=== PATIENT | male | born 1965 | race African-American/Black ===

== ENCOUNTER 2021-02-26 14:06 | Outpatient (RCR) | payer MEDICARE, MEDICAID, SELFPAY ==
--- NOTE | 2021-02-26 15:23 | REHOPWC ---
SEATING EVALUATION NOTIFICATION This is to notify provider that Laure Roca participated in a power mobility device evaluation today. Recommendations were made specific to patient's needs. Seating Assessment documentation has been completed for detailed information on required equipment. The mobility device provider for this case is Ilir. Please note that no further care plan will be developed on this account. Thank you for referring this patient to [facility]. Please review, sign, date and return this discharge summary SINCERE. I have been updated about the patient's current status and I agree with discharge from the above service at this time. Referring Physician Date
== END 2021-02-27 08:35 | disposition home or self-care (01) ==
LOC: ANHPT 14:06
PROVIDERS: PCP Family Medicine; Visit Provider Family Medicine
DX: M17.0 Bilateral primary osteoarthritis of knee (principal); M25.561 Pain in right knee; M25.562 Pain in left knee; G89.29 Other chronic pain; E66.01 Morbid (severe) obesity due to excess calories
CPT/HCPCS: 97163

== ENCOUNTER 2021-06-05 09:10 | Outpatient (RCR) | payer MEDICARE, MEDICAID, SELFPAY ==
[2021-06-05 09:26] VITALS: BMI 56.8
[2021-06-05 09:35] VITALS: BMI 56.8
== END 2021-08-20 13:18 | disposition home or self-care (01) ==
LOC: ANHDMC 09:10
PROVIDERS: PCP Family Medicine; Visit Provider Family Medicine
DX: N18.4 Chronic kidney disease, stage 4 (severe) (principal); Z71.3 Dietary counseling and surveillance
CPT/HCPCS: 97802; 99199